=== PATIENT | female | born 1995 | race African-American/Black ===

== ENCOUNTER 2023-07-09 11:42 | Inpatient (IN) | payer MEDICAID ==
[~2023-07-09] VITALS: Ht 161.5 cm; Wt 82.6 kg
[2023-07-09 14:00] VITALS: BP 119/72; TEMP 98.4
[2023-07-09] MEDS ORDERED: ONDA4TAB5 PO (14:05)
[2023-07-09] MEDS ORDERED: DICY10CA37 PO (14:05)
[2023-07-09] MEDS ORDERED: ACETAMINOPHEN 650 MG/SUPP.RECT RC PRN (15:00)
[2023-07-09] MEDS ORDERED: IV D5/0.45 NACL 1,000 ML IV PRN (15:00)
[2023-07-09] MEDS ORDERED: diphenhydrAMINE HCL 50 MG/ML VIAL IV PRN (15:00)
[2023-07-09] MEDS ORDERED: MAG HYDROX/AL HYDROX/SIMETH 30 ML UDC PO PRN (15:00)
[2023-07-09] MEDS ORDERED: ZOLPIDEM TARTRATE 5 MG TABLET PO PRN (15:00)
[2023-07-09] MEDS ORDERED: ACETAMINOPHEN 325 MG TABLET PO PRN (15:00)
[2023-07-09] MEDS ORDERED: KETOROLAC TROMETHAMINE INJ 30 MG/ML VIAL IM PRN (15:00)
[2023-07-09] MEDS ORDERED: Z GUARD REMEDY 4 OZ OINT TP PRN (15:00)
[2023-07-09] MEDS ORDERED: ONDANSETRON HCL/PF 4 MG/2 ML VIAL IVP PRN (15:00)
[2023-07-09] MEDS ORDERED: MAGNESIUM HYDROXIDE 30 ML UDC PO PRN (15:00)
[2023-07-09 18:00] VITALS: BP 123/75; TEMP 209.1; TEMP 98.4
[2023-07-10] MEDS ORDERED: PANTOPRAZOLE 40 MG VIAL IV SCH (09:00)
== END 2023-07-09 19:50 | disposition left against medical advice (07) | DRG 249 ==
LOC: MEDSG1 13:44 → TELE1 14:29
PROVIDERS: ADMIT Internal Medicine; ATTEND Internal Medicine
DX: R11.15 Cyclical vomiting syndrome unrelated to migraine (principal); E87.6 Hypokalemia; Z90.49 Acquired absence of other specified parts of digestive tract; R00.1 Bradycardia, unspecified; F12.10 Cannabis abuse, uncomplicated
CPT/HCPCS: A4223; G0378; J1885; J3490; J7070